=== PATIENT | male | born 1965 | race Caucasian/White ===

== ENCOUNTER 2022-03-16 15:41 | Outpatient (REF) | payer BC, SELFPAY ==
[2022-03-16 15:38] LABS: Abs Immature Grans 0.03 10^3/uL (0.0-0.06); Absolute Basophil Count 0.08 10^3/uL (0.0-0.2); Absolute Eosinophil Count 0.25 10^3/uL (0.0-0.7); Absolute Lymphocyte Count 2.46 10^3/uL (1.2-3.4); Absolute Monocyte Count 0.82 10^3/uL (0.1-0.8); Absolute Neutrophil Count 5.31 10^3/uL (1.2-6.7); Basophils % 0.9; Eosinophils % 2.8; HCT 43.8 % (40.0-50.0); HGB 14.9 g/dL (13.5-17.5); Immature Grans % 0.3; Lymphocytes % 27.5; MCH 32.8 pg (27.0-33.0); MCV 97 fL (80-95); Monocytes % 9.2; Neutrophils % 59.3; Platelet Count 175 10^3/uL (130-400); RBC 4.54 10^6/uL (4.36-5.78); RDW 13.1 % (11.8-14.1); RDW-SD 46.7 fL; WBC 8.95 10^3/uL (4.4-10.8)
[2022-03-16 16:52] LABS: ALT 22 U/L (16-63); AST 19 U/L (15-37); Albumin 3.6 g/dL (3.4-5.0); Alkaline Phosphatase 53 U/L (46-116); Anion Gap 7.3 mmol/L (3-11); BUN 17 mg/dL (7-18); Bilirubin, Total 0.5 mg/dL (0.2-1.0); CO2 25.7 mmol/L (21.0-32.0); CREATININE 0.9 mg/dL (0.70-1.30); Calcium 8.1 mg/dL (8.5-10.1); Calculated LDL 112 mg/dL (<100); Chloride 104 mmol/L (98-107); Cholesterol 158 mg/dL (<200); Glucose 121 mg/dL (74-106); HDL Cholesterol 38 mg/dL (40-60); Potassium 4.2 mmol/L (3.5-5.1); Sodium 137 mmol/L (136-145); Total Protein 6.8 g/dL (6.4-8.2); Triglyceride 43 mg/dL (<150)
== END 2022-03-16 15:42 | disposition home or self-care (01) ==
LOC: NCHCN 15:41
PROVIDERS: Visit Provider Physician Assistant Medical
DX: Z00.00 Encounter for general adult medical examination without abnormal findings (principal); I10 Essential (primary) hypertension
CPT/HCPCS: 80053; 80061; 85025

== ENCOUNTER 2023-11-20 14:15 | Outpatient (REF) | payer BC, SELFPAY ==
[2023-11-20 20:03] LABS: Hemoglobin A1C 5.1 % (<5.7)
[2023-11-20 20:07] LABS: ALT 25 U/L (16-63); AST 24 U/L (15-37); Albumin 4.2 g/dL (3.4-5.0); Alkaline Phosphatase 60 U/L (46-116); BUN 10 mg/dL (7-18); Calcium 9.4 mg/dL (8.5-10.1); Calculated LDL 67 mg/dL (<100); Chloride 98 mmol/L (98-107); Cholesterol 132 mg/dL (<200); Glucose 114 mg/dL (74-106); HDL Cholesterol 55 mg/dL (40-60); Potassium 3.7 mmol/L (3.5-5.1); Sodium 135 mmol/L (136-145); Total Protein 7.9 g/dL (6.4-8.2); Triglyceride 51 mg/dL (<150)
== END 2023-11-20 14:16 | disposition home or self-care (01) ==
LOC: NCHCN 14:15
PROVIDERS: PCP Physician Assistant Medical; Visit Provider Physician Assistant Medical
DX: E78.5 Hyperlipidemia, unspecified (principal); R73.9 Hyperglycemia, unspecified
CPT/HCPCS: 80053; 80061; 83036

== ENCOUNTER 2024-12-12 12:19 | Outpatient (CLI) | payer BC, SELFPAY ==
--- NOTE | 2024-12-12 | DI.RAD_ITS ---
Exam(s) XR FOOT RT COMPLETE EXAM: XR FOOT RT COMPLETE CLINICAL HISTORY: PAIN IN R FOOT. TECHNIQUE: 2D digital imaging was performed. COMPARISON: No exams were available for comparison FINDINGS: 3 views No evidence of acute fracture or diastasis of the Lisfranc joint. No pes planus. There is mild mcgee ux valgus and mild degenerative changes in the great toe metatarsophalangeal joint. The more medial of the 2 sesamoid bones at this level is noted to be bipartite. All other articulations of the foot appear unremarkable. No inferior calcaneal spur. Tiny enthesophyte noted on the posterior calcaneus Achilles insertion site. IMPRESSION: No acute osseous findings. Mild hallux valgus. DATA REPOSITORY: RADIATION DOSE DELIVERED:
--- NOTE | 2024-12-12 13:11 | DI.VRAD_ITS ---
PROCEDURE INFORMATION: Exam: XR Right Foot Exam date and time: 12/12/2024 12:36 PM Age: 59 years old Clinical indication: Other: Pain in right foot TECHNIQUE: Imaging protocol: Radiologic exam of the right foot. Views: 3 or more views. Total images: 3 COMPARISON: No relevant prior studies available. FINDINGS: Bones/joints: Slight hallux valgus deformity. No evidence of acute fracture or dislocation. Calcaneal spurs are present. Soft tissues: Normal. IMPRESSION: 1. Slight hallux valgus deformity. 2. No evidence of acute fracture or dislocation. Dictated and Authenticated by: Familia Mackenzie MD. Orderin Indira Barreto MD
== END 2024-12-12 12:39 ==
PROVIDERS: PCP Physician Assistant Medical; Visit Provider Physician Assistant Medical
DX: M79.671 Pain in right foot (principal)
CPT/HCPCS: 73630

== ENCOUNTER 2025-03-02 17:37 | Outpatient (REF) | payer BC, SELFPAY | END 2025-03-02 17:38 | disposition home or self-care (01) | LOC: NCHCN 17:37 | PROVIDERS: PCP Physician Assistant Medical; Visit Provider Physician Assistant Medical | DX: L02.92 Furuncle, unspecified (principal) | CPT/HCPCS: 87070; 87205 ==

== ENCOUNTER 2025-05-10 16:13 | Outpatient (REF) | payer BC, SELFPAY ==
[2025-05-10 16:07] LABS: HCT 36.6 % (40.0-50.0); HGB 11.9 g/dL (13.5-17.5); MCH 29.7 pg (27.0-33.0); MCHC 32.5 % (32.0-36.0); MCV 91 fL (80-95); MPV 9.7 fL (8.0-11.0); Platelet Count 356 10^3/uL (130-400); RBC 4.01 10^6/uL (4.36-5.78); RDW 15.8 % (11.8-14.1); RDW-SD 53.0 fL; WBC 9.04 10^3/uL (4.4-10.8)
[2025-05-10 16:27] LABS: ALT 44 U/L (16-63); AST 30 U/L (15-37); Albumin 3.9 g/dL (3.4-5.0); Alkaline Phosphatase 92 U/L (46-116); Anion Gap 10.2 mmol/L (3-11); BUN 12 mg/dL (7-18); Bilirubin, Total 0.7 mg/dL (0.2-1.0); CO2 26.8 mmol/L (21.0-32.0); Calcium 9.4 mg/dL (8.5-10.1); Chloride 101 mmol/L (98-107); Estimated GFR 97.17 (mL/min/1.73m2); Glucose 122 mg/dL (74-106); Potassium 4.1 mmol/L (3.5-5.1); Sodium 138 mmol/L (136-145); Total Protein 7.6 g/dL (6.4-8.2)
== END 2025-05-10 16:14 | disposition home or self-care (01) ==
LOC: LBN 16:13
PROVIDERS: PCP Physician Assistant Medical; Visit Provider Surgery Vascular Surgery
DX: I70.261 Atherosclerosis of native arteries of extremities with gangrene, right leg (principal)
CPT/HCPCS: 80053; 85027

== ENCOUNTER 2025-05-17 10:41 | Outpatient (REF) | payer BC, SELFPAY ==
[2025-05-17 10:59] LABS: HCT 36.2 % (40.0-50.0); HGB 11.5 g/dL (13.5-17.5); MCH 29.3 pg (27.0-33.0); MCHC 31.8 % (32.0-36.0); MCV 92 fL (80-95); MPV 10.8 fL (8.0-11.0); Platelet Count 223 10^3/uL (130-400); RBC 3.93 10^6/uL (4.36-5.78); RDW 16.0 % (11.8-14.1); RDW-SD 54.5 fL; WBC 8.44 10^3/uL (4.4-10.8)
[2025-05-17 11:04] LABS: ESR 27 mm/hr (0-20)
[2025-05-17 11:09] LABS: ALT 24 U/L (16-63); AST 21 U/L (15-37); Albumin 3.5 g/dL (3.4-5.0); Alkaline Phosphatase 97 U/L (46-116); Anion Gap 7.5 mmol/L (3-11); BUN 13 mg/dL (7-18); Bilirubin, Total 0.6 mg/dL (0.2-1.0); CO2 29.5 mmol/L (21.0-32.0); Calcium 9.0 mg/dL (8.5-10.1); Chloride 99 mmol/L (98-107); Estimated GFR 100.69 (mL/min/1.73m2); Glucose 142 mg/dL (74-106); Potassium 4.5 mmol/L (3.5-5.1); Sodium 136 mmol/L (136-145); Total Protein 6.9 g/dL (6.4-8.2)
== END 2025-05-17 10:42 | disposition home or self-care (01) ==
LOC: NCHCN 10:41
PROVIDERS: PCP Physician Assistant Medical; Visit Provider Physician Assistant Medical
DX: I70.261 Atherosclerosis of native arteries of extremities with gangrene, right leg (principal)
CPT/HCPCS: 80053; 85027; 85652

== ENCOUNTER 2025-05-28 15:46 | Outpatient (REF) | payer BC, SELFPAY ==
[2025-05-28 15:51] LABS: HCT 34.7 % (40.0-50.0); HGB 11.2 g/dL (13.5-17.5); MCH 30.2 pg (27.0-33.0); MCHC 32.3 % (32.0-36.0); MCV 94 fL (80-95); MPV 10.6 fL (8.0-11.0); Platelet Count 205 10^3/uL (130-400); RBC 3.71 10^6/uL (4.36-5.78); RDW 15.8 % (11.8-14.1); RDW-SD 54.0 fL; WBC 6.37 10^3/uL (4.4-10.8)
[2025-05-28 15:55] LABS: ESR 15 mm/hr (0-20)
[2025-05-28 16:22] LABS: ALT 29 U/L (16-63); AST 26 U/L (15-37); Albumin 3.4 g/dL (3.4-5.0); Alkaline Phosphatase 96 U/L (46-116); Anion Gap 8.1 mmol/L (3-11); BUN 13 mg/dL (7-18); Bilirubin, Total 0.6 mg/dL (0.2-1.0); CO2 28.9 mmol/L (21.0-32.0); Calcium 9.1 mg/dL (8.5-10.1); Chloride 102 mmol/L (98-107); Estimated GFR 97.17 (mL/min/1.73m2); Glucose 137 mg/dL (74-106); Potassium 4.5 mmol/L (3.5-5.1); Sodium 139 mmol/L (136-145); Total Protein 6.8 g/dL (6.4-8.2)
== END 2025-05-28 15:47 | disposition home or self-care (01) ==
LOC: LBN 15:46
PROVIDERS: PCP Physician Assistant Medical; Visit Provider Surgery Vascular Surgery
DX: I70.261 Atherosclerosis of native arteries of extremities with gangrene, right leg (principal)
CPT/HCPCS: 80053; 85027; 85652

== ENCOUNTER 2025-06-04 16:07 | Outpatient (REF) | payer BC, SELFPAY ==
[2025-06-04 16:44] LABS: Abs Immature Grans 0.03 10^3/uL (0.0-0.06); HCT 35.5 % (40.0-50.0); HGB 11.2 g/dL (13.5-17.5); Immature Grans % 0.3 %; MCH 29.9 pg (27.0-33.0); MCHC 31.5 % (32.0-36.0); MCV 95 fL (80-95); MPV 10.3 fL (8.0-11.0); Platelet Count 259 10^3/uL (130-400); RBC 3.75 10^6/uL (4.36-5.78); RDW 15.1 % (11.8-14.1); RDW-SD 52.8 fL; WBC 8.68 10^3/uL (4.4-10.8)
[2025-06-04 16:53] LABS: Hemoglobin A1C 4.5 % (<5.7)
[2025-06-04 17:10] LABS: ALT 30 U/L (16-63); AST 24 U/L (15-37); Albumin 3.5 g/dL (3.4-5.0); Alkaline Phosphatase 101 U/L (46-116); Anion Gap 5.8 mmol/L (3-11); BUN 9 mg/dL (7-18); Bilirubin, Total 0.7 mg/dL (0.2-1.0); CO2 29.2 mmol/L (21.0-32.0); Calcium 8.9 mg/dL (8.5-10.1); Chloride 100 mmol/L (98-107); Estimated GFR 85.63 (mL/min/1.73m2); Glucose 200 mg/dL (74-106); Potassium 4.3 mmol/L (3.5-5.1); Sodium 135 mmol/L (136-145); Total Protein 7.0 g/dL (6.4-8.2)
[2025-06-04 17:15] LABS: C-Reactive Protein < 0.50 mg/dL (<or=0.5)
== END 2025-06-04 16:08 | disposition home or self-care (01) ==
LOC: NCHCN 16:07
PROVIDERS: PCP Physician Assistant Medical; Visit Provider Physician Assistant Medical
DX: Z47.81 Encounter for orthopedic aftercare following surgical amputation (principal); I70.261 Atherosclerosis of native arteries of extremities with gangrene, right leg; D62 Acute posthemorrhagic anemia; R73.9 Hyperglycemia, unspecified
CPT/HCPCS: 80053; 83036; 85025; 86140

== ENCOUNTER 2025-06-11 16:27 | Outpatient (REF) | payer BC, SELFPAY ==
[2025-06-11 18:10] LABS: Abs Immature Grans 0.02 10^3/uL (0.0-0.06); HCT 36.7 % (40.0-50.0); HGB 11.8 g/dL (13.5-17.5); Immature Grans % 0.3 %; MCH 30.6 pg (27.0-33.0); MCHC 32.2 % (32.0-36.0); MCV 95 fL (80-95); MPV 11.0 fL (8.0-11.0); Platelet Count 219 10^3/uL (130-400); RBC 3.86 10^6/uL (4.36-5.78); RDW 14.8 % (11.8-14.1); RDW-SD 51.4 fL; WBC 7.31 10^3/uL (4.4-10.8)
[2025-06-11 18:25] LABS: ALT 26 U/L (16-63); AST 21 U/L (15-37); Albumin 3.5 g/dL (3.4-5.0); Alkaline Phosphatase 103 U/L (46-116); Anion Gap 8.0 mmol/L (3-11); BUN 17 mg/dL (7-18); Bilirubin, Total 0.7 mg/dL (0.2-1.0); CO2 27.0 mmol/L (21.0-32.0); Calcium 8.8 mg/dL (8.5-10.1); Chloride 104 mmol/L (98-107); Estimated GFR 100.69 (mL/min/1.73m2); Glucose 130 mg/dL (74-106); Potassium 4.4 mmol/L (3.5-5.1); Sodium 139 mmol/L (136-145); Total Protein 7.1 g/dL (6.4-8.2)
[2025-06-11 19:59] LABS: C-Reactive Protein < 0.50 mg/dL (<or=0.5)
== END 2025-06-11 16:28 | disposition home or self-care (01) ==
LOC: LBN 16:27
PROVIDERS: PCP Physician Assistant Medical; Visit Provider Surgery Vascular Surgery
DX: Z47.81 Encounter for orthopedic aftercare following surgical amputation (principal)
CPT/HCPCS: 80053; 85025; 86140

== ENCOUNTER 2025-07-12 12:02 | Outpatient (REF) | payer BC, SELFPAY ==
[2025-07-12 15:27] LABS: Abs Immature Grans 0.02 10^3/uL (0.0-0.06); HCT 42.5 % (40.0-50.0); HGB 13.9 g/dL (13.5-17.5); Immature Grans % 0.2 %; MCH 30.5 pg (27.0-33.0); MCHC 32.7 % (32.0-36.0); MCV 93 fL (80-95); MPV 10.7 fL (8.0-11.0); Platelet Count 227 10^3/uL (130-400); RBC 4.56 10^6/uL (4.36-5.78); RDW 13.6 % (11.8-14.1); RDW-SD 46.5 fL; WBC 8.34 10^3/uL (4.4-10.8)
[2025-07-12 16:24] LABS: Iron 86 ug/dL (65-175)
[2025-07-12 16:46] LABS: Anion Gap 10.8 mmol/L (3-11); BUN 14 mg/dL (7-18); CO2 25.2 mmol/L (21.0-32.0); Calcium 9.4 mg/dL (8.5-10.1); Chloride 101 mmol/L (98-107); Estimated GFR 97.17 (mL/min/1.73m2); Ferritin 77 ng/mL (26-388); Glucose 125 mg/dL (74-106); Potassium 4.9 mmol/L (3.5-5.1); Sodium 137 mmol/L (136-145); Vitamin B12 252 pg/mL (193-986)
[2025-07-12 16:49] LABS: Folate > 20.0 ng/mL (8.6-20.0)
== END 2025-07-12 12:03 | disposition home or self-care (01) ==
LOC: NCHCN 12:02
PROVIDERS: PCP Physician Assistant Medical; Visit Provider Physician Assistant Medical
DX: D64.9 Anemia, unspecified (principal); I10 Essential (primary) hypertension
CPT/HCPCS: 80048; 82607; 82728; 82746; 83540; 85025

== ENCOUNTER 2025-08-11 13:42 | Outpatient (REF) | payer BC, SELFPAY ==
[2025-08-11 18:29] LABS: Anion Gap 5 mmol/L (3-11); BUN 14 mg/dL (9-23); CO2 26.4 mmol/L (20.0-31.0); Calcium 9.8 mg/dL (8.3-10.6); Chloride 97 mmol/L (98-107); Glucose 119 mg/dL (74-106); Potassium 4.1 mmol/L (3.5-5.1); Sodium 128 mmol/L (136-145)
== END 2025-08-11 13:43 | disposition home or self-care (01) ==
LOC: NCHCN 13:42
PROVIDERS: PCP Physician Assistant Medical; Visit Provider Physician Assistant Medical
DX: I10 Essential (primary) hypertension (principal)
CPT/HCPCS: 80048